=== PATIENT | female | born 1990 | race Hispanic/Latino ===

== ENCOUNTER 2018-07-04 09:57 | Inpatient (IN) | payer MEDICAID, SELFPAY ==
[2018-07-04 10:43] VITALS: BMI 28.1
[2018-07-04] MEDS ORDERED: Lactated Ringer's 1,000 ML IV SCH ×2 (12:00→13:23)
--- NOTE | 2018-07-04 12:32 | PDOC.FPROB ---
FMR OB H&P: HPI - History of Present Illness Chief Complaint: Contractions History of Present Illness: This is a 28 yo at 38.2 by 13.5wk US presents to L&D for a cc of contractions. She states they started yesterday and have increased in frequency and intensity to every 10 minute at time of arrival. She denies LOF, vaginal discharge, sharp pain. She reports +FM and lower back pain. She states that she has been tolerating PO fluids but has been anorexic since the contractions started. She states she saw Dr. Jose on Saturday of this week and has a scheduled C section for next Saturday. Primary Care Physician: Dr. Wayne Jose FMR OB H&P: Current - Care : 4 Para: 3 Gestational age: 38.2 Due date: 07/16/18 Dating Criteria: 13.5 wk US Total weight gain: 9.6 lbs Course/Complications: None - OB Labs Blood type: O RH: positive Antibody Screen: negative HIV: negative RPR: negative HepBsAg: negative Rubella: non-immune 1 hour gtt: neg, 93mg/dl GBS: negative H&H: 8.8/32.6 06/02/16 FMR OB H&P: History - Past Medical History PMH: None - OB History OB History: 3 previous csections. The first 2/2 placenta previa - Surgical History Sx History: 3 c sections - Social History Social History: Denies D/A/T FMR OB H&P: Medications - Current Home Medications: Medication Instructions Recorded Confirmed Type No Known 07/04/18 07/04/18 History Allergies/Adverse Reactions: Allergies Allergy/AdvReac Type Severity Reaction Status Date / Time Penicillins Allergy Intermediate Hives Verified 07/04/18 10:47 FMR OB H&P: ROS - Review of Systems General: reports: weight/appetite/sleep changes. denies: fever/chills Cardiovascular: denies: chest pain, palpitation Respiratory: denies: congestion Gastrointestinal: reports: abdominal pain. denies: indigestion, bloating, cramping, nausea, vomiting Genitourinary (Female): reports: vaginal pressure. denies: incontinence, dysuria, vaginal discharge, vaginal bleeding Musculoskeletal: reports: pain (back pain) Neurologic: denies: numbness, syncope Integumentary: denies: itching, discoloration Psychological: denies: depression, anxiety FMR OB H&P: Vital Signs - Maternal Vital signs: Vital Signs - First Documented Temp Pulse Resp BP Pulse Ox 98.0 F 91 18 132/75 100 07/04/18 10:13 07/04/18 10:13 07/04/18 10:13 07/04/18 10:13 07/04/18 10:13 - Heart Tones Baseline: 130 Variability: moderate Acceleration: present Deceleration: absent [place] contractions every: sporatic FMR OB H&P: Physical Exam - Physical Exam General: NAD, awake, alert and oriented HEENT: normocephalic and atraumatic, MMM Neck: FROM, no JVD Chest: non-tender to palpation Heart: RRR, normal S1/S2, no murmurs/rubs/gallops General: CTAB, no respiratory distress, no wheezing Abdomen: soft, gravid Deviation from normal: tender to palpation of lower abdomen Musculoskeletal: pulses present Neurological: cranial nerves II through XII intact Skin: capillary refill <2 seconds Lymphatic: no unusual bruising or bleeding Psychiatric: intact recent and remote memory, good judgement and insight, normal mood and affect - Pelvic Exam SVE: C/T/H at 1048 FMR OB H&P: A/P - Problem List (1) Term Current Visit: Yes Status: Acute Code(s): Z34.80 - ENCOUNTER FOR SUPRVSN OF NORMAL , UNSP TRIMESTER Assessment and Plan: monitor FHTs and watch for contractions. Recheck cervix in 2 hours. We will reevaluate status at that time. (2) History of 3 sections Current Visit: Yes Status: Acute Code(s): Z87.59 - PERSONAL HISTORY OF COMP OF PREG, CHLDBRTH AND THE PUERP Assessment and Plan: High risk . We have discussed case with Dr. Montero. Discussion: Date/Time: 07/04/18 1223 This H&P was discussed with [] and [] who agree with the above documentation and plan. Attending Addendum - Attending Addendum Date/Time: 07/04/18 [id number] I personally evaluated the patient and discussed the management with Dr. Prakash I agree with the History, Examination, Assessment and Plan documented above with any addition or exceptions noted below. 28 yo at 38w2d with h/o 3 prior sections presenting for painful contractions that have been increasing in frequency and getting more painful. On exam pt was emilie intermittently, q 3-10 min. She did not make any cervical change however per Dr Jose (PCP) there has been concern for a uterine window on her recent ultrasounds. Given that she has had 3 prior sections and is emilie painfully in setting of possible uterine window, will proceed with delivery today. Pt has good dates. R/B/A of Repeat have been discussed with patient. She verbalizes understanding of these risks.
[2018-07-04] MEDS ORDERED: Ondansetron HCl/PF 4 MG/2 ML Vial IVP PRN ×5 (13:23→18:46)
[2018-07-04] MEDS ORDERED: Clindamycin/D5W 900 MG in Premix Bag 1 BAG IVPB SCH (13:23)
[2018-07-04] MEDS ORDERED: Gentamicin 80 MG/2 ML VIAL IVPB SCH (13:23)
[2018-07-04] MEDS ORDERED: Acetaminophen 500 MG TAB PO PRN (13:23)
[2018-07-04] MEDS ORDERED: Bicitra 30 ML UDCUP PO SCH (13:23)
[2018-07-04] MEDS ORDERED: Promethazine HCl 25 MG/ML VIAL IM PRN ×3 (13:23→18:46)
[2018-07-04] MEDS ORDERED: Gentamicin Sulfate 120 MG in Premix Bag 1 BAG IVPB SCH ×2 (13:30→13:45)
[2018-07-04 13:38] LABS: Hemoglobin 12.6 g/dL (12.0-16.0); Mean Corpuscular HGB CONC 34.2 g/dL (32.0-36.0); Mean Corpuscular Hemoglobin 25.9 pg (27.0-31.0); Mean Corpuscular Volume 75.7 fL (78.0-98.0); Mean Platelet Volume 11.1 fL (7.4-10.4); Platelet Count 163 thou/uL (130-400); RBC Distribution Width 22.8 % (11.5-14.5); Red Blood Cell (RBC) Count 4.86 mill/uL (4.20-5.40)
[2018-07-04 14:14] LABS: Syphilis Antibody Nonreactive (Nonreactive); Syphilis Antibody Index 0.02 S/CO (<1.00 Non-Reactive)
[2018-07-04 14:15] LABS: HBSAg Index 0.19 S/CO (0-0.99); Hep B Surf Ag Non-Reactive S/CO (NonReactive)
[2018-07-04] MEDS ORDERED: ePHEDrine/0.9% NaCl/PF SYRINGE 50 mg/10 ml ONE ×2 (14:57→17:29)
[2018-07-04] MEDS ORDERED: Ondansetron HCl/PF 4 MG/2 ML Vial ONE ×2 (14:57→18:29)
[2018-07-04] MEDS ORDERED: diphenhydrAMINE 50 MG/ML VIAL ONE (14:57)
[2018-07-04] MEDS ORDERED: Ketorolac Tromethamine 30 MG/ML VIAL ONE ×2 (14:57→18:45)
[2018-07-04] MEDS ORDERED: Morphine PF 1 MG/ML SYR ONE (17:28)
[2018-07-04] MEDS ORDERED: Lidocaine 1% PF 5 ML VIAL ONE (17:29)
[2018-07-04] MEDS ORDERED: Oxytocin 10 UNITS/ML VIAL ONE (17:29)
[2018-07-04] MEDS ORDERED: Bupivacaine 0.75% W/DEXTROSE 8.25% 2 ML AMP ONE (17:29)
[2018-07-04] MEDS ORDERED: Fentanyl 100 MCG/2 ML VIAL ONE (18:22)
[2018-07-04] MEDS ORDERED: HYDROmorphone 2 MG/ML VIAL SLOW IVP PRN ×2 (18:44→18:46)
[2018-07-04] MEDS ORDERED: Eucerin (Mineral Oil/Petrolatum,White) 30 gm Jar TOP PRN ×2 (18:44→18:46)
[2018-07-04] MEDS ORDERED: diphenhydrAMINE 50 MG/ML VIAL IVP PRN ×2 (18:44→18:46)
[2018-07-04] MEDS ORDERED: Promethazine HCl 25 MG SUPP PR PRN ×2 (18:44→18:46)
[2018-07-04] MEDS ORDERED: Naloxone HCl 0.4 mg/ml Vial IV PRN ×2 (18:44→18:46)
[2018-07-04] MEDS ORDERED: Meperidine HCl/PF 25 MG/ML VIAL SLOW IVP PRN ×2 (18:44→18:46)
[2018-07-04] MEDS ORDERED: Naloxone HCl 0.4 mg/ml Vial IVP PRN ×4 (18:44→18:46)
[2018-07-04] MEDS ORDERED: Communication Order-Pharmacy FS SCH ×2 (18:45→19:00)
[2018-07-04] MEDS ORDERED: Ketorolac Tromethamine 30 MG/ML VIAL IVP PRN (18:46)
[2018-07-04] MEDS ORDERED: Ketorolac Tromethamine 30 MG/ML VIAL IVP SCH (19:00)
[2018-07-04] MEDS ORDERED: Meperidine HCl/PF 25 MG/ML VIAL ONE (19:37)
[2018-07-04] MEDS ORDERED: HYDROcodone/Acetaminophen 5/325 mg Tablet PO PRN (20:42)
[2018-07-04] MEDS ORDERED: NS / Oxytocin 40 units/1000ml 1,000 ML IV SCH (20:42)
[2018-07-04] MEDS ORDERED: Lanolin Ointment 7 GM TUBE TOP PRN (20:42)
[2018-07-04] MEDS ORDERED: Methylergonovine 0.2 MG/ML VIAL IM PRN (20:42)
[2018-07-04] MEDS ORDERED: Misoprostol 200 MCG TAB PR PRN (20:42)
--- NOTE | 2018-07-04 21:23 | PDOC.EVN ---
Event Note - Event Note Event Note: Received page from L&D regarding vaginal bleeding in transfer to for patient that is 2 hours post-op c/s. Bleeding evident on pad with multiple small clots measuring approximately 330 mL after being weighed. Patient had 690 mL QBL during delivery. Second bag of pitocin is being hung. Fundal massage was performed again and uterus was noted to be firm and approximately 3-4 cm above umbilicus. Will continue to monitor. Patient's VSS. Will consider giving lysteda or some other agent for bleeding. Continue to monitor closely and intervene as necessary. Monitor for signs/symptoms of anemia. Joanna Zaidi, DO PGY-2 <Joanna Zaidi - Last Filed: 07/04/18 22:42> - Event Note Event Note: Pt seen and evaluated. Pt denies dizziness, CP, SOB. Pain is controlled. Uterus is firm, +2. On fundal massage patient had small gush of fluid. She is s/p methergine x 1. Will give 1gm of transexaminic acid. Consider bakri balloon if no improvement with txa. <Leatha Reyes - Last Filed: 07/04/18 22:51>
[2018-07-04] MEDS ORDERED: Ibuprofen 800 MG TAB PO SCH (22:00)
--- NOTE | 2018-07-04 22:53 | PDOC.PP ---
Post Progress Note Post Day #: 0 Subjective: feeling well, resting comfortably in bed. No complaints, denies dizziness, pain , shortness of breath. PO intake tolerated: no Flatus: no Ambulation: no Vital Signs (12 hours) Temp Pulse Resp 07/04/18 17:08 98.0 F 91 18 07/04/18 12:00 98.0 F 91 18 Weight Weight 65.317 kg - Physical Examination General: NAD Cardiovascular: no m/r/g, RRR Respiratory: clear to auscultation bilaterally Abdominal: + bowel sounds, appropriately TTP Fundus firm & at: umbilicus Extremities: negative homans (B) Skin: CS incision dry & intact Perineum: swollen, no gross lesions, small amount of oozing/clots can be expressed Neurological: no gross focal deficits Psychiatric: A&Ox3, normal affect Result Diagrams: 07/04/18 12:25 Additional Labs: Post Labs Blood Type O POSITIVE 07/04/18 12:25 Hep Bs Antigen Non-Reactive S/CO (NonReactive) 07/04/18 12:25 (1) hemorrhage, delivered Code(s): O72.1 - OTHER IMMEDIATE HEMORRHAGE Status: Acute Comment : small amount of oozing noted with pressure on uterine fundus, QBL 1100 at this point. Vital signs are stable, asymptomatic at this point. will administer TXA and recheck in 1 hour. - Assessment/Plan continue close monitoring, urine output adequate
[2018-07-04] MEDS ORDERED: Tranexamic Acid 1,000 MG in Sodium Chloride 0.9% 250 ML 250 ML IVPB SCH (23:00)
[2018-07-05] MEDS ORDERED: Acetaminophen 1,000 MG in Premix Bag 1 BAG IVPB PRN (01:00)
--- NOTE | 2018-07-05 01:01 | OP-2 ---
DATE OF SERVICE: 07/04/2018 PRIMARY SURGEON: Leatha Reyes D.O. ASSISTING SURGEON: Cruz Gore M.D., Emre Cruz M.D. PROCEDURE: Repeat low transverse . ANESTHESIA: Spinal. PREOPERATIVE DIAGNOSES: 1. Term intrauterine in labor. 2. History of prior section x3. 3. Concern for lower segment uterine window on ultrasound. POSTOPERATIVE DIAGNOSES: 1. Term intrauterine in labor. 2. History of repeat section x3. 3. Lower segment uterine window. 4. Extensive intra-abdominal adhesions covering the anterior aspect of the uterus and extending to the lateral abdominal wall. QUANTITATIVE BLOOD LOSS: 690 mL. INDICATIONS: Ms. Laguerre is a 28-year-old G4, P3-0-0-3 at 32 weeks by 13.5- week ultrasound, who presented to labor and delivery with contractions. Recent ultrasound was concerning for uterine window. Given that she was experiencing painful contractions and there was concern for the uterine window. She elected to proceed with repeat section. PROCEDURE IN DETAIL: Patient provided informed consent after risks, benefits, and alternatives were discussed. She received preoperative antibiotics of clindamycin 900 mg x1 and gentamicin 120 mg x1. Patient was taken to the operating room and spinal anesthesia was initiated. Patient was placed in supine position with left lateral tilt and prepped and draped in the usual sterile fashion. A skin incision was made using a scalpel, which was carried down to the level of the fascia. Fascia was sharply nicked using scalpel. The fascial incision was extended in the superior lateral fashion using curved Benson scissors. The superior and inferior edges of the fascia were elevated with Indira clamps and the underlying rectus muscle was bluntly and sharply dissected away from the fascia. The abdominal cavity or the rectus muscles were divided digitally and retracted manually. At this time, there were multiple filmy adhesions noted along the anterior fundus of the uterus that were incorporated with the abdominal peritoneum. These were dissected through both sharply and bluntly. Multiple venous plexus were noted throughout the adhesions and bleeding was controlled using Bovie cautery. Lower segment was identified and a uterine window was noted along the lower segment. A fresh scalpel was used to make a low transverse score. The uterine cavity was entered bluntly using the Yankauer suction tip. The hysterotomy was extended in the caudal cranial fashion. The was noted to be vertex and the head was elevated manually and delivered easily with fundal pressure. Remainder of the body was then delivered and the cord was clamped and cut and the infant was given to the awaiting nursery team. Cord blood was collected and sent for analysis. The placenta was then removed manually. Both apices were identified using ring forceps as well as the lower segment. The hysterotomy was closed using a 0 Monocryl in the running locking fashion. The bladder was back filled with 60 mL of sterile formula and no extravasation was noted within the abdominal cavity. One [id number] was needed to control bleeding along the left apex using 0 Monocryl. SurgiSeal was applied over the hysterotomy, as there were several small serosal bleeders. SurgiSeal was also applied over the adhesions along the anterior fundus. The fascial edges and rectus muscles were inspected for bleeding and noted to have some mild venous bleeding. Areas of large bleeding were stopped with Bovie cautery. Fascia was reapproximated using an 0 PDS in the running nonlocking fashion. The skin was reapproximated using 4-0 Monocryl in the running subcuticular fashion. Dermabond was placed over the incision as was a pressure dressing. Counts were correct x3. The patient went to recovery room in stable condition. COMPLICATIONS: None. SPECIMEN: Cord blood sent to lab. FINDINGS: Grossly normal. Male infant with Apgars of 9 and 9 at one and five minutes respectively and delivered at 1811 hours. Grossly normal placenta with three-vessel cord discarded. DRAINS: Ann catheter with milk tinged urine. Dr. Reyes was present for the entire procedure. [facility] CENTERFred
[2018-07-05] MEDS: Docusate Calcium (SURFAK) 240 MG CAP PO SCH ×3 (02:35→20:50)
--- NOTE | 2018-07-05 02:53 | PDOC.PP ---
Post Progress Note Post Day #: 1 Subjective: pt is resting comfortably in bed, no complaints at this time. denies SOB, dizziness, CP. PO intake tolerated: no Flatus: no Ambulation: no Vital Signs (12 hours) Temp Pulse Resp BP 07/04/18 23:55 98.3 F 88 16 121/73 07/04/18 23:10 80 119/65 07/04/18 22:40 74 118/57 L 07/04/18 22:00 98.1 F 76 16 118/70 07/04/18 21:40 75 118/59 L 07/04/18 21:10 98.0 F 74 16 126/64 07/04/18 17:08 98.0 F 91 18 Weight Weight 65.317 kg - Physical Examination General: NAD Cardiovascular: no m/r/g, RRR Respiratory: clear to auscultation bilaterally, non-labored breathing Abdominal: + bowel sounds, no distention Fundus firm & at: umbilicus Extremities: negative homans (B) Skin: CS incision dry & intact (bandage dry) Perineum: no blood or clots on bell or expressed Neurological: no gross focal deficits Psychiatric: A&Ox3 (somnolent) Result Diagrams: 07/04/18 12:25 Additional Labs: Post Labs Blood Type O POSITIVE 07/04/18 12:25 Hep Bs Antigen Non-Reactive S/CO (NonReactive) 07/04/18 12:25 (1) hemorrhage, delivered Code(s): O72.1 - OTHER IMMEDIATE HEMORRHAGE Status: Acute Comment : no amount of oozing noted with pressure on uterine fundus, QBL 1100 at this point. Vital signs are stable, asymptomatic at this point. recheck in 3 hours. <Anand Rangel - Last Filed: 07/05/18 06:27> Vital Signs (12 hours) Temp Pulse Resp BP 07/05/18 12:00 97.9 F 81 20 111/66 07/05/18 08:00 97.5 F L 75 18 106/55 L 07/05/18 07:40 97.5 F L 75 18 07/05/18 04:00 98.6 F 74 16 120/68 Weight Weight 65.317 kg Result Diagrams: 07/05/18 05:45 Additional Labs: Post Labs Blood Type O POSITIVE 07/04/18 12:25 Hep Bs Antigen Non-Reactive S/CO (NonReactive) 07/04/18 12:25 (1) Term Code(s): Z34.80 - ENCOUNTER FOR SUPRVSN OF NORMAL , UNSP TRIMESTER Status: Acute (2) History of 3 sections Code(s): Z87.59 - PERSONAL HISTORY OF COMP OF PREG, CHLDBRTH AND THE PUERP Status: Acute <Leatha Reyes - Last Filed: 07/05/18 13:26>
[2018-07-05] MEDS ORDERED: Sodium Chloride 0.9% 20 ML ONE (05:17)
[2018-07-05] MEDS: Ketorolac Tromethamine 30 MG/ML VIAL IVP PRN ×2 (05:19→14:11)
[2018-07-05 06:09] LABS: Hemoglobin 10.3 g/dL (12.0-16.0); Mean Corpuscular HGB CONC 32.9 g/dL (32.0-36.0); Mean Corpuscular Hemoglobin 25.1 pg (27.0-31.0); Mean Corpuscular Volume 76.5 fL (78.0-98.0); Mean Platelet Volume 10.9 fL (7.4-10.4); Platelet Count 129 thou/uL (130-400); RBC Distribution Width 22.6 % (11.5-14.5); Red Blood Cell (RBC) Count 4.11 mill/uL (4.20-5.40); White Blood Cell (WBC) Count 7.4 thou/uL (4.8-10.8)
--- NOTE | 2018-07-05 06:29 | PDOC.PP ---
Post Progress Note Post Day #: 1 Subjective: pt is resting comfortably in bed, no complaints. Last bell changed with minimal -no blood, urine output adequate, denies dizziness, shortness of breath, or chest pain. PO intake tolerated: no Flatus: no Ambulation: no Vital Signs (12 hours) Temp Pulse Resp BP 07/05/18 04:00 98.6 F 74 16 120/68 07/04/18 23:55 98.3 F 88 16 121/73 07/04/18 23:10 80 119/65 07/04/18 22:40 74 118/57 L 07/04/18 22:00 98.1 F 76 16 118/70 07/04/18 21:40 75 118/59 L 07/04/18 21:10 98.0 F 74 16 126/64 Weight Weight 65.317 kg - Physical Examination General: NAD Cardiovascular: no m/r/g, RRR Respiratory: clear to auscultation bilaterally, non-labored breathing Abdominal: + bowel sounds, lochia Fundus firm & at: pubic symphisis Extremities: negative homans (B) Skin: CS incision dry & intact Perineum: without expressable blood Neurological: no gross focal deficits Psychiatric: A&Ox3 Result Diagrams: 07/05/18 05:45 Additional Labs: Post Labs Blood Type O POSITIVE 07/04/18 12:25 Hep Bs Antigen Non-Reactive S/CO (NonReactive) 07/04/18 12:25 (1) hemorrhage, delivered Code(s): O72.1 - OTHER IMMEDIATE HEMORRHAGE Status: Acute Comment : no amount of oozing noted with pressure on uterine fundus, QBL 1100 at this point. Vital signs are stable, asymptomatic at this point. recheck in 3 hours. - Assessment/Plan continue monitoring on post-, Hb at 10.3, routine post- care <Anand Rangel - Last Filed: 07/05/18 06:28> Vital Signs (12 hours) Temp Pulse Resp BP 07/05/18 12:00 97.9 F 81 20 111/66 07/05/18 08:00 97.5 F L 75 18 106/55 L 07/05/18 07:40 97.5 F L 75 18 07/05/18 04:00 98.6 F 74 16 120/68 Weight Weight 65.317 kg Result Diagrams: 07/05/18 05:45 Additional Labs: Post Labs Blood Type O POSITIVE 07/04/18 12:25 Hep Bs Antigen Non-Reactive S/CO (NonReactive) 07/04/18 12:25 (1) Term Code(s): Z34.80 - ENCOUNTER FOR SUPRVSN OF NORMAL , UNSP TRIMESTER Status: Acute (2) History of 3 sections Code(s): Z87.59 - PERSONAL HISTORY OF COMP OF PREG, CHLDBRTH AND THE PUERP Status: Acute <Leatha Reyes - Last Filed: 07/05/18 13:24> Attending Addendum - Attending Addendum Date/Time: 07/05/18 1321 I personally evaluated the patient and discussed the management with Dr. Rangel I agree with the History, Examination, Assessment and Plan documented above with any addition or exceptions noted below. 28yo [id number] POD # 1 s/p uncomplicated RLTCS. Feeling well this morning. She denies dizziness with ambulation. Has tolerated PO without n/v. Bleeding minimal since getting TXA last night. Pain is controlled. Has not yet urinated s /p removal of banuelos 1hr ago. Uterus is firm and at umbilicus. Stable POD #1. Meeting appropriate milestones. Appropriate drop in H+H postoperatively. Anticipate d/c to home on POD # 2 or 3 <Leatha Reyes - Last Filed: 07/05/18 13:24>
[2018-07-05] MEDS ORDERED: Sodium Chloride 0.9% 10 ML ONE (07:15)
[2018-07-05] MEDS ORDERED: Adacel (T-DAP) 0.5 ML VIAL IM ONE (09:00)
[2018-07-05] MEDS: Prenatal Vitamin 1 TAB PO SCH (10:17)
[2018-07-05] MEDS: Simethicone Chewable 80 MG TAB PO PRN ×2 (17:58→23:21)
[2018-07-05] MEDS: Ibuprofen 800 MG TAB PO SCH (20:50)
[2018-07-05] MEDS: HYDROcodone/Acetaminophen 5/325 mg Tablet PO PRN (20:50)
[2018-07-06] MEDS: HYDROcodone/Acetaminophen 5/325 mg Tablet PO PRN ×4 (02:11→23:28)
[2018-07-06 05:52] LABS: Hemoglobin 9.2 g/dL (12.0-16.0); Mean Corpuscular HGB CONC 33.5 g/dL (32.0-36.0); Mean Corpuscular Hemoglobin 25.9 pg (27.0-31.0); Mean Corpuscular Volume 77.2 fL (78.0-98.0); Mean Platelet Volume 9.6 fL (7.4-10.4); Platelet Count 144 thou/uL (130-400); RBC Distribution Width 22.7 % (11.5-14.5); Red Blood Cell (RBC) Count 3.54 mill/uL (4.20-5.40); White Blood Cell (WBC) Count 7.3 thou/uL (4.8-10.8)
--- NOTE | 2018-07-06 06:18 | PDOC.PP ---
Post Progress Note Post Day #: 2 Subjective: Pt. states she did well overnight. She reports urinating and some bowel movements however she has some pain with valsalva. She also reports intermittent shoulder pain. She states that her pain is controlled. She denies palpitations, dizziness and lightheadedness with ambulation, N/V. PO intake tolerated: yes Flatus: yes Ambulation: yes Vital Signs (12 hours) Temp Pulse Resp BP 07/06/18 04:35 98.1 F 77 16 106/53 L 07/05/18 23:39 97.5 F L 82 16 97/54 L 07/05/18 20:00 98.4 F 89 16 102/58 L Weight Weight 65.317 kg - Physical Examination General: NAD Cardiovascular: no m/r/g, RRR Respiratory: clear to auscultation bilaterally, non-labored breathing Abdominal: + bowel sounds, lochia, no distention, appropriately TTP Fundus firm & at: umbilicus Extremities: negative homans (B) Neurological: no gross focal deficits Psychiatric: A&Ox3, normal affect Result Diagrams: 07/06/18 05:45 Additional Labs: Post Labs Blood Type O POSITIVE 07/04/18 12:25 Hep Bs Antigen Non-Reactive S/CO (NonReactive) 07/04/18 12:25 (1) Term Code(s): Z34.80 - ENCOUNTER FOR SUPRVSN OF NORMAL , UNSP TRIMESTER Status: Acute (2) History of 3 sections Code(s): Z87.59 - PERSONAL HISTORY OF COMP OF PREG, CHLDBRTH AND THE PUERP Status: Acute - Assessment/Plan This is a 28 yo G4 now [id number] who delivered via rLTCS at 38.2 and past history of 3 prior C/S Term delivery via C/S -Routine care, encourage breast feeding, bonding with infant, ambulation and po intake. Patient's shoulder pain is likely 2/2 air under diaphragm post surgery. Anemia -Pre H/H 12.6/36.8 to Post 10.3/31.4 to 9.2/27.3 today. Pt. has no dizziness, palpitations, or lightheadedness. She states her bleeding is minimal. Disposition: discharge later today <Adeel Prakash - Last Filed: 07/06/18 07:18> Vital Signs (12 hours) Temp Pulse Resp BP Pulse Ox 07/06/18 09:12 97.6 F 85 16 113/56 L 98 07/06/18 08:00 98.1 F 77 16 07/06/18 04:35 98.1 F 77 16 106/53 L 07/05/18 23:39 97.5 F L 82 16 97/54 L Weight Weight 65.317 kg Result Diagrams: 07/06/18 05:45 Additional Labs: Post Labs Blood Type O POSITIVE 07/04/18 12:25 Hep Bs Antigen Non-Reactive S/CO (NonReactive) 07/04/18 12:25 (1) Term Code(s): Z34.80 - ENCOUNTER FOR SUPRVSN OF NORMAL , UNSP TRIMESTER Status: Acute (2) History of 3 sections Code(s): Z87.59 - PERSONAL HISTORY OF COMP OF PREG, CHLDBRTH AND THE PUERP Status: Acute <Leatha Reyes - Last Filed: 07/06/18 11:04> Attending Addendum - Attending Addendum Date/Time: 07/06/18 1102 I personally evaluated the patient and discussed the management with Dr. Prakash I agree with the History, Examination, Assessment and Plan documented above with any addition or exceptions noted below. Stable POD # 2 s/p RLTCS Doing well this morning. Denies dizziness with ambulation, SOB or CP. No problems with voiding/flatus/eating. Pain is controlled. Lochia minimal. On exam incision is clean/dry/intact. Uterus is firm and at Umbilicus. Continue routine postop care Anticipate d/c to home on POD #3 <Leatha Reyes - Last Filed: 07/06/18 11:04>
[2018-07-06] MEDS: Ibuprofen 800 MG TAB PO SCH ×3 (07:34→21:55)
[2018-07-06] MEDS: Docusate Calcium (SURFAK) 240 MG CAP PO SCH ×2 (07:34→21:55)
[2018-07-06] MEDS: Prenatal Vitamin 1 TAB PO SCH (07:34)
[2018-07-06] MEDS: Simethicone Chewable 80 MG TAB PO PRN ×2 (07:35→21:55)
[2018-07-07 00:49] VITALS: TEMP 98.1
[2018-07-07] MEDS: Ibuprofen 800 MG TAB PO SCH ×2 (05:24→13:38)
[2018-07-07] MEDS: HYDROcodone/Acetaminophen 5/325 mg Tablet PO PRN ×2 (09:08→13:38)
[2018-07-07] MEDS: Docusate Calcium (SURFAK) 240 MG CAP PO SCH (09:08)
[2018-07-07] MEDS: Simethicone Chewable 80 MG TAB PO PRN (09:08)
[2018-07-07] MEDS: Prenatal Vitamin 1 TAB PO SCH (09:08)
[2018-07-07 09:49] VITALS: BP 129/78
[2018-07-10] MEDS ORDERED: Ibuprofen 800 MG TAB PO SCH (06:00)
== END 2018-07-07 13:45 | disposition home or self-care (01) | DRG 766 ==
LOC: L&D/OP 09:57 → L&D 13:28 → 3SW 21:14
PROVIDERS: ADMIT Emergency Medicine; ATTEND Emergency Medicine
PROC: 10D00Z1 Extraction of Products of Conception, Low, Open Approach (ICD-10-PCS; principal; 2018-07-04)
DX: O34.219 Maternal care for unspecified type scar from previous cesarean delivery (principal); Z37.0 Single live birth; Z3A.38 38 weeks gestation of pregnancy; K66.0 Peritoneal adhesions (postprocedural) (postinfection); O99.02 Anemia complicating childbirth
CPT/HCPCS: 36415; 51702; 85027; 86780; 86850; 86900; 86901; 87340; 99285; A4216; J0131; J1200; J1580; J1885; J2001; J2175; J2210; J2274; J2405; J2550; J2590; J3010; J3490; J7050

== ENCOUNTER 2019-03-24 08:38 | Emergency (ER) | payer MEDICAID, SELFPAY ==
--- NOTE | 2019-03-24 09:16 | RAD ---
LEFT SHOULDER 3 VIEWS HISTORY: Left shoulder pain FINDINGS: No acute fracture, dislocation or bony destruction is identified.
[2019-03-24] MEDS ORDERED: Ketorolac Tromethamine 30 MG/ML VIAL ONE (09:55)
--- NOTE | 2019-03-24 10:20 | RAD ---
CHEST TWO VIEWS: History: Chest pain. Comparison: None. FINDINGS: Lungs are clear. No pneumothorax or effusion. Cardiac silhouette and mediastinal contours are within normal limits. IMPRESSION: No acute intrathoracic abnormality. POS: CET
== END 2019-03-24 11:20 | disposition home or self-care (01) ==
LOC: ERS 08:38
DX: M25.512 Pain in left shoulder (principal)
CPT/HCPCS: 71046; 93005; 96372; J1885

== ENCOUNTER 2024-05-30 18:51 | Emergency (ER) | payer SELFPAY ==
[2024-05-30] MEDS ORDERED: Ketorolac Tromethamine 30 MG (1 mL) VIAL ONE (20:06)
== END 2024-05-30 20:24 | disposition home or self-care (01) ==
LOC: ERS 18:51
DX: K08.89 Other specified disorders of teeth and supporting structures (principal); F17.210 Nicotine dependence, cigarettes, uncomplicated
CPT/HCPCS: 96372; 99282; J1885